=== PATIENT | female | born 1955 | race Caucasian/White ===

== ENCOUNTER 2019-01-19 13:12 | Day surgery (SDC) | payer BC ==
[~2019-01-19 13:12] MED LIST: Buffered Lidocaine 1% SYRIN* 1 ML/SYRINGE INTRADERM ONE; Famotidine IV* 10 MG/ML 2 ML (20 mg) IV ONE; Lactated Ringers 1000 ML Bag* 1,000 ML IV SCH
[2019-01-19] MEDS ORDERED: Famotidine IV* 10 MG/ML 2 ML (20 mg) ONE (13:27)
[2019-01-19] MEDS ORDERED: ceFAZolin 2 GM in NS PREMIX(*) 2 GM/100 ML BAG IVPB ONE (13:53)
[2019-01-19 14:30] LABS: ABS Eosinophils 0.1 10^3/ul (0-0.6); ABS Lymphocytes 0.7 10^3/ul (1.0-4.8); ABS Monocytes 0.2 10^3/ul (0-0.8); ABS Neutrophils 2.2 10^3/ul (1.5-7.7); Hematocrit 36 % (35-47); Hemoglobin 12.5 g/dL (12.0-16.0); Lymphocyte % 23.2 %; Mean Corpuscular HGB Conc 35 g/dL (31-36); Mean Corpuscular Hemoglobin 33 pg (27-31); Mean Corpuscular Volume 93 fL (80-97); Mean Platelet Volume 7.5 fL (7.4-10.4); Nucleated Red Blood Cells % 0.1; Platelet Count 235 10^3/uL (150-450); Red Blood Count 3.85 10^6 /uL (3.70-4.87); Red Cell Distribution Width 12 % (10-15); White Blood Count 3.2 10^3/uL (3.5-10.8)
[2019-01-19 14:40] LABS: Albumin 4.4 g/dL (3.2-5.2); Albumin/Globulin Ratio 1.3 (1-3); BUN/Creatinine Ratio 13.4 (8-20); Calcium 9.6 mg/dL (8.6-10.3); EGFR African American 107.9 (>60); EGFR Non-African American 89.2 (>60); Globulin 3.3 g/dL (2-4); Potassium 3.7 mmol/L (3.5-5.0); Total Bilirubin 0.6 mg/dL (0.2-1.0); Total Protein 7.7 g/dL (6.4-8.9)
[2019-01-19] MEDS ORDERED: Lidocaine 1% INJ* 10 MG/ML 30 ML SDV ONE (14:50)
[2019-01-19] MEDS ORDERED: fentaNYL* 50 MCG/ML 2 ML VIAL (100 MCG VIAL) ONE (15:29)
[2019-01-19] MEDS ORDERED: Midazolam* 1 MG/ML 5 ML VIAL (5 MG) ONE (15:30)
--- NOTE | 2019-01-19 17:35 | OP ---
Operative Report - Blank - Operative Report Date of Operation: 01/19/19 Note: OPERATIVE NOTE Pre-Operative Diagnosis: Lymphoma Post-Operative Diagnosis:Same Procedure:Insertion of left chest wall 8F powerport Surgeon: Julianna Alfaro MD [employer] Aide:none Anesthesia: Local with MAC with Dr. Montano IVF:min EBL:min Specimen:none Drain: none Wound Class:One Findings: Above TO PACU
[2019-01-19] MEDS ORDERED: Propofol* 10 MG/ML 20 ML BTL ONE (17:40)
[2019-01-19] MEDS ORDERED: Ondansetron INJ* 2 MG/ML VIAL ONE (17:40)
[2019-01-19] MEDS ORDERED: Acetaminophen TAB* 325 MG PO PRN (18:10)
[2019-01-19] MEDS ORDERED: Naloxone* 0.4 MG/ML 1 ML VIAL IV PRN (18:10)
[2019-01-19 18:35] VITALS: BP 155/89
--- NOTE | 2019-01-19 22:53 | OP ---
CC: Dr. Aubrey Howell * DATE OF OPERATION: 01/19/19 - [facility] DATE OF : 57 SURGEON: Daniel Alfaro MD FILM AND VIDEO EDITOR: None. ANESTHESIOLOGIST: Dr. Montano. ANESTHESIA: Local with monitored anesthesia care. PRE-OP DIAGNOSIS: Lymphoma. POST-OP DIAGNOSIS: Lymphoma. OPERATIVE PROCEDURE: Insertion of left chest wall, 8-Dutch PowerPort. ESTIMATED BLOOD LOSS: Minimal. IV FLUIDS: Minimal. SPECIMENS: None. COMPLICATIONS: None. DRAINS: None. WOUND CLASSIFICATION: I. BRIEF HISTORY: Ms. Rachel Rios is a 63-year-old woman recently diagnosed with lymphoma and now to receive chemotherapy. The PowerPort insertion has been requested by Oncology for chemotherapy administration. The procedure was discussed with the patient and the risks of, but not limited to, bleeding, infection, pneumothorax, injury to intrathoracic organs, and anesthesia were all explained. DESCRIPTION OF PROCEDURE: Written informed consent was obtained, the left chest was marked with indelible ink and preoperative antibiotics were administered. The patient was taken to the operating room and placed in the supine position. Sequential compression devices and a warming blanket were applied. Anesthesia was administered. Time-out verification was completed. The left chest and neck extending to the right side of the chest was prepped and draped in the usual sterile fashion. The patient was placed in Trendelenburg position. 1% lidocaine was used to infiltrate the left anterior chest wall. Using an 18-gauge Cook needle in the first pass, the subclavian vein was punctured below just beneath the clavicle. There was good blood return and the guidewire was inserted without difficulty and confirmed to be in the superior vena cava by fluoroscopy. Additional lidocaine was infiltrated inferior and medial to my puncture site. Transverse incision was made and the subcutaneous pocket was made large enough to fit the port just inferior to my incision. The catheter was then tunneled from the puncture site to the pocket site. Next, using the sheath, peel-away dilator system, the catheter was the inserted into the superior vena cava and positioned at the junction with the atrium using fluoroscopy. The catheter was then cut to appropriate length, attached to the port and placed in the subcutaneous pocket. The catheter withdrew and flushed saline well, withdrew blood and flushed easily. Heparin was then used to flush the catheter. The port was secured to the subcutaneous tissue within the pocket with 2 separate 2- 0 Prolene suture. Hemostasis was assured. The incisions were closed with 3-0 and 4-0 Vicryl sutures. Steri-Strips and a sterile dressing and an occlusive dressing were placed. The patient tolerated the procedure well and was taken to the recovery room in stable condition. Postprocedural chest x-ray showed the catheter to be in good position without evidence of pneumothorax. [id number]/[facility] #: [id number] ALEXANDER
== END 2019-01-19 18:39 | disposition home or self-care (01) ==
LOC: OR 13:12
PROVIDERS: ATTEND Surgery
DX: C85.91 Non-Hodgkin lymphoma, unspecified, lymph nodes of head, face, and neck (principal); E03.9 Hypothyroidism, unspecified; F41.8 Other specified anxiety disorders; E66.01 Morbid (severe) obesity due to excess calories; M19.90 Unspecified osteoarthritis, unspecified site
CPT/HCPCS: 36415; 71045; 76000; 80053; 85025; C1788; J0690; J1642; J2250; J2405; J2704; J3010

== ENCOUNTER 2019-05-07 15:29 | Inpatient (IN) | payer BC ==
[2019-05-07 15:36] LABS: ABS Lymphocytes 0.2 10^3/ul (1.0-4.8); ABS Monocytes 0.3 10^3/ul (0-0.8); ABS Neutrophils 2.2 10^3/ul (1.5-7.7); Eosinophil % 0.1 %; Hematocrit 21 % (35-47); Hemoglobin 7.4 g/dL (12.0-16.0); Mean Corpuscular HGB Conc 35 g/dL (31-36); Mean Corpuscular Hemoglobin 33 pg (27-31); Mean Corpuscular Volume 94 fL (80-97); Mean Platelet Volume 7.3 fL (7.4-10.4); Nucleated Red Blood Cells % 0.1; Platelet Count 227 10^3/uL (150-450); Red Blood Count 2.28 10^6 /uL (3.70-4.87); Red Cell Distribution Width 17 % (10-15); White Blood Count 2.8 10^3/uL (3.5-10.8)
[2019-05-07 15:52] LABS: Albumin 3.4 g/dL (3.2-5.2); Albumin/Globulin Ratio 1.2 (1-3); BUN/Creatinine Ratio 14.5 (8-20); Calcium 9.2 mg/dL (8.6-10.3); EGFR Non-African American 97.5 (>60); Globulin 2.9 g/dL (2-4); Total Bilirubin 0.9 mg/dL (0.2-1.0); Total Protein 6.3 g/dL (6.4-8.9)
[2019-05-07 16:00] LABS: Potassium 2.6 mmol/L (3.5-5.0)
[2019-05-07] MEDS ORDERED: Loperamide CAP* 2 MG PO PRN (17:20)
[2019-05-07] MEDS: KCL 20 MEQ/100 ML IVPREMIX* 20 MEQ/100 ML BAG IV SCH ×2 (19:19→21:26)
[2019-05-07] MEDS: Enoxaparin(*) 40 MG/0.4 ML SYR SUBCUT SCH (21:38)
[2019-05-07] MEDS: acetaZOLAMIDE TAB* 250 MG PO SCH (21:38)
[2019-05-07] MEDS: Timolol 0.5% OPTH.SOL* BTL BOTH EYES SCH (21:39)
[2019-05-08] MEDS: NS 0.9% w/ 40 Meq KCL 1000 ML* 1,000 ML IV SCH ×3 (01:01→22:56)
[2019-05-08] MEDS: Levothyroxine TAB* 100 MCG TAB PO SCH (05:07)
[2019-05-08 05:31] LABS: Hematocrit 18 % (35-47); Hemoglobin 6.2 g/dL (12.0-16.0); Mean Corpuscular HGB Conc 34 g/dL (31-36); Mean Corpuscular Hemoglobin 32 pg (27-31); Mean Corpuscular Volume 94 fL (80-97); Mean Platelet Volume 7.4 fL (7.4-10.4); Platelet Count 167 10^3/uL (150-450); Red Blood Count 1.91 10^6 /uL (3.70-4.87); Red Cell Distribution Width 17 % (10-15); White Blood Count 1.4 10^3/uL (3.5-10.8)
[2019-05-08 05:34] LABS: Albumin 2.7 g/dL (3.2-5.2); Calcium 8.4 mg/dL (8.6-10.3); EGFR African American 151.3 (>60); Globulin 2.6 g/dL (2-4); Potassium 3.2 mmol/L (3.5-5.0); Total Bilirubin 0.6 mg/dL (0.2-1.0); Total Protein 5.3 g/dL (6.4-8.9)
[2019-05-08 07:03] LABS: ABS Lymphocytes 0.2 10^3/ul (1.0-4.8); ABS Monocytes 0.2 10^3/ul (0-0.8); Lymphocyte % 14.6 %
[2019-05-08] MEDS: acetaZOLAMIDE TAB* 250 MG PO SCH ×3 (08:40→21:21)
[2019-05-08] MEDS: Timolol 0.5% OPTH.SOL* BTL BOTH EYES SCH ×2 (08:40→21:22)
[2019-05-08] MEDS ORDERED: Ondansetron TAB* 4 MG PO PRN (09:16)
[2019-05-08] MEDS ORDERED: Acetaminophen TAB* 325 MG PO PRN (09:16)
[2019-05-08] MEDS ORDERED: KCL 20 MEQ/100 ML IVPREMIX* 20 MEQ/100 ML BAG IV ONE (09:18)
--- NOTE | 2019-05-08 09:27 | PN ---
Progress Note - Progress Note Date of Service: 05/08/19 SOAP: Subjective: []Feels okay. Fever last night during transfusion, reaction work-up pending. Apparently she has been "spiking fevers" with tmax "100 point something" for several weeks, "and then I have a bowel movement and it goes down." She denies chills and night sweats. Poor appetite as it "just sits there" and feels like she doesn't have good gut bacteria right now, "Its all the chemicals and in there." She denies cramping but states she has a fair amount of gas. Denies nausea. Medications: Acetaminophen (Tylenol Tab*) 650 mg PO Q4H PRN PRN Reason: PAIN - MILD Acetazolamide (Diamox Tab*) 250 mg PO TID [facility] Last Admin: 05/08/19 08:40 Dose: 250 mg Enoxaparin Sodium (Lovenox(*)) 40 mg SUBCUT Q24H [facility] Last Admin: 05/07/19 21:38 Dose: 40 mg Heparin Sodium (Porcine) (Heparin Flush Port (Ivad)) 5 ml FLUSH DAILY [facility]; Protocol Last Admin: 05/08/19 08:54 Dose: Not Given Potassium Chloride/Sodium Chloride (Ns 0.9% W/ 40 Meq Kcl 1000 Ml*) 1,000 mls @ 150 mls/hr IV PER RATE [facility] Last Admin: 05/08/19 08:41 Dose: 150 mls/hr Potassium Chloride (Potassium Chloride 20 Meq/100 Ml Ivpremix*) 20 meq in 100 mls @ 50 mls/hr IV ONCE ONE Stop: 05/08/19 11:17 Levothyroxine Sodium (Synthroid Tab*) 100 mcg PO QAM@0600 [facility] Last Admin: 05/08/19 05:07 Dose: 100 mcg Loperamide HCl (Imodium Cap*) 2 mg PO .SEE DIRECTIONS PRN PRN Reason: DIARRHEA Ondansetron HCl (Zofran Tab*) 4 mg PO Q6H PRN PRN Reason: NAUSEA Prochlorperazine (Compazine 10 Mg Tab) 10 mg PO Q6H PRN PRN Reason: NAUSEA Timolol Maleate (Timoptic 0.5% Opth*) 1 drop BOTH EYES BID [facility] Last Admin: 03/31/20 08:40 Dose: 1 drop Objective: [] Vital Signs Temp Pulse Resp BP Pulse Ox 97.9 F 90 20 102/62 94 05/08/19 07:15 05/08/19 07:15 05/08/19 07:15 05/08/19 07:15 05/08/19 07:15 A&Ox3, EOMI, neuro grossly non-focal HRR with ectopy noted, SR with PACs and rare PVCs, rate 90s, occ. tachy LS clear +BS, abd. soft and non-tender throughout Laboratory Results - last 24 hr 05/07/19 05/07/19 05/07/19 15:25 15:25 15:25 WBC 2.8 L RBC 2.28 L Hgb 7.4 L Hct 21 L MCV 94 MCH 33 H MCHC 35 RDW 17 H Plt Count 227 MPV 7.3 L Neut % (Auto) 81.1 Lymph % (Auto) 7.0 [place] % (Auto) 11.0 Eos % (Auto) 0.1 Baso % (Auto) 0.8 Absolute Neuts (auto) 2.2 Absolute Lymphs (auto) 0.2 L Absolute Monos (auto) 0.3 Absolute Eos (auto) 0.0 Absolute Basos (auto) 0.0 Absolute Nucleated RBC 0.0 Nucleated RBC % 0.1 Sodium 136 Potassium 2.6 L* Chloride 103 Carbon Dioxide 23 Anion Gap 10 BUN 9 Creatinine 0.62 Est GFR ( Amer) 118.0 Est GFR (Non-Af Amer) 97.5 BUN/Creatinine Ratio 14.5 Glucose 129 H Calcium 9.2 Total Bilirubin 0.90 AST 21 ALT 21 Alkaline Phosphatase 59 Total Protein 6.3 L Albumin 3.4 Globulin 2.9 Albumin/Globulin Ratio 1.2 Blood Type A Positive Antibody Screen Negative Crossmatch See Detail Donor Unit # Post-Trans Blood Type Post-Trans YESSI 05/08/19 05/08/19 05/08/19 00:45 05:06 05:06 WBC 1.4 L RBC 1.91 L Hgb 6.2 L* Hct 18 L MCV 94 MCH 32 H MCHC 34 RDW 17 H Plt Count 167 MPV 7.4 Neut % (Auto) 68.7 Lymph % (Auto) 14.6 [place] % (Auto) 15.8 Eos % (Auto) 0.0 Baso % (Auto) 0.9 Absolute Neuts (auto) 1.0 L Absolute Lymphs (auto) 0.2 L Absolute Monos (auto) 0.2 Absolute Eos (auto) 0.0 Absolute Basos (auto) 0.0 Absolute Nucleated RBC 0.0 Nucleated RBC % 0.0 Sodium 139 Potassium 3.2 L Chloride 110 Carbon Dioxide 23 Anion Gap 6 BUN 6 Creatinine 0.50 L Est GFR ( Amer) 151.3 Est GFR (Non-Af Amer) 125.0 BUN/Creatinine Ratio 12.0 Glucose 97 Calcium 8.4 L Total Bilirubin 0.60 AST 18 ALT 16 Alkaline Phosphatase 51 Total Protein 5.3 L Albumin 2.7 L Globulin 2.6 Albumin/Globulin Ratio 1.0 Blood Type Antibody Screen Crossmatch Donor Unit # [id number] Post-Trans Blood Type A Positive Post-Trans YESSI Negative Assessment: []63 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 presenting with diarrhea and found to have profound hypokalemia. Plan: []1. Hypokalemia: secondary to diarrhea - 20 mEq KCl IV run x1, cont. NS with KCl - will be d/c'd on PO - enc. imodium PRN 2. Anemia: secondary to chemotherapy - s/p partial transfusion last night with question of reaction, work-up pending - transfuse 2 units today d/t hmg <7 3. Neutropenia: secondary to chemotherapy - precautions in place - call for any temp. >100.4F and will need cultures and lactic acid 4. Lymphoma: due for C6 R-CHOP today -delay x1 week d/t above Dispo: monitor overnight follow transfusion, plan d/c tomorrow
[2019-05-08 09:45] LABS: Magnesium 1.9 mg/dL (1.9-2.7)
[2019-05-08] MEDS: Enoxaparin(*) 40 MG/0.4 ML SYR SUBCUT SCH (21:22)
[2019-05-09] MEDS: NS 0.9% w/ 40 Meq KCL 1000 ML* 1,000 ML IV SCH (05:41)
[2019-05-09] MEDS: Levothyroxine TAB* 100 MCG TAB PO SCH (05:42)
[2019-05-09 09:22] LABS: ABS Lymphocytes 0.3 10^3/ul (1.0-4.8); ABS Monocytes 0.3 10^3/ul (0-0.8); Eosinophil % 0.1 %; Hematocrit 26 % (35-47); Hemoglobin 8.8 g/dL (12.0-16.0); Lymphocyte % 10.8 %; Mean Corpuscular HGB Conc 34 g/dL (31-36); Mean Corpuscular Hemoglobin 31 pg (27-31); Mean Corpuscular Volume 93 fL (80-97); Mean Platelet Volume 7.5 fL (7.4-10.4); Platelet Count 174 10^3/uL (150-450); Red Blood Count 2.81 10^6 /uL (3.70-4.87); Red Cell Distribution Width 18 % (10-15); White Blood Count 2.5 10^3/uL (3.5-10.8)
[2019-05-09] MEDS: Timolol 0.5% OPTH.SOL* BTL BOTH EYES SCH (09:26)
[2019-05-09] MEDS: acetaZOLAMIDE TAB* 250 MG PO SCH ×2 (09:26→13:59)
[2019-05-09 09:45] LABS: Albumin 2.9 g/dL (3.2-5.2); Albumin/Globulin Ratio 1.1 (1-3); Calcium 8.3 mg/dL (8.6-10.3); EGFR African American 151.3 (>60); Globulin 2.6 g/dL (2-4); Magnesium 1.6 mg/dL (1.9-2.7); Potassium 3.8 mmol/L (3.5-5.0); Total Bilirubin 0.8 mg/dL (0.2-1.0); Total Protein 5.5 g/dL (6.4-8.9)
[2019-05-09] MEDS ORDERED: Magnesium Sulfate 2 GM IV* 2 GM/50 ML BAG IVPB ONE (10:43)
--- NOTE | 2019-05-09 11:15 | DS ---
- Discharge Summary Admission Date: 05/07/2019 Discharge Date: 05/09/2019 Diagnoses: 1. Hypokalemia -plan continue po potassium 20meq twice daily -2gm IV mag given prior to discharge today 2. Diarrhea - encouraged use of loperamide 2mg PRN at home - bland diet, increase diet as tolerated. 3. Anemia - likely secondary to chemotherapy - partial transfusion received on 05/07/19, hgb stable at 8.8 today 4. 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 - held C6 for acute illness. Medications: Dorzolamide HCl/Pf [Dorzolamide 2% Eye Drop] 1 drop BOTH EYES BID 01/18/19 [ History Confirmed 05/07/19] Latanoprost/Pf [Latanoprost 0.005% Eye Drop] 1 drop BOTH EYES BEDTIME 01/18/19 [ History Confirmed 05/07/19] Levothyroxine Sodium 100 mcg PO QAM 01/18/19 [History Confirmed 05/07/19] Timolol 0.5% OPTH.JOSEPH* [Timoptic 0.5% Opth*] 1 drop BOTH EYES BID 01/18/19 [ History Confirmed 05/07/19] acetaZOLAMIDE [Acetazolamide] 250 mg PO TID 01/18/19 [History Confirmed 05/07/19 ] Acetaminophen TAB* [Tylenol TAB*] 650 mg PO Q4H PRN 05/07/19 [History Confirmed 05/07/19] Loperamide HCl [Imodium A-D] 2 mg PO Q4HR PRN 05/07/19 [History Confirmed ] Ondansetron TAB* [Zofran 4 MG Tab*] 4 mg PO Q6H PRN 05/07/19 [History Confirmed 05/07/19] Prochlorperazine 10 mg TAB [Compazine 10 mg TAB] 10 mg PO Q6H PRN 05/07/19 [ History Confirmed 05/07/19] Scopolamine 1.5 mg* PATCH* [Transderm-Scop 1.5 mg Patch*] 1 patch TRANSDERM Q72H PRN 05/07/19 [History Confirmed 05/07/19] predniSONE 5 mg TAB [Deltasone 5 mg TAB] 100 mg PO DAILY 05/07/19 [History Confirmed 05/09/19] Loperamide CAP* [Imodium CAP*] 2 mg PO .SEE DIRECTIONS PRN cap 05/09/19 [Rx] Disposition: Home Condition at Discharge: Stable Diet: bland, increase as tolerated Activity: as tolerated Follow-up: TuesdayMay 14 at 0840 at [facility] for lab work/chemotherapy to follow. Hospital Course: This is a 63-year-old female well known to oncology with history of DLBCL s/p C5 R-CHOP, MTX IT. She was seen in clinic on 05/07/19 for routine follow-up at which point she complained of diarrhea and was found to be hypokalemic. She was subsequently admitted for IV hydration and electrolyte repletion. She was also found to be anemic, likely secondary to chemotherapy so transfusion of 2U PRBC was ordered. Unfortunately during the transfusion she was febrile to 100.6F so transfusion was stopped and subsequent reaction work-up was negative. She was given another transfusion of 2U PRBC (total of 3U during hospital admission) on 05/08/19 without incident. Her hgb stabilized and at time of discharge is 8.8. She has not had any further fevers and vital signs have remained stable. Today she reports she is feeling "about the same as I was when I came in here" but reports she is anxious to get home. She reports she has had one episode of diarrhea this morning and one episode yesterday morning. She has not used antidiarrheals during this hospital stay. Her potassium this morning has normalized to 3.8, Mg is 1.6 and patient will receive 2gm IV today prior to discharge home. She will also be discharged home with oral potassium 20meq to be taken twice daily. She did not receive chemotherapy R-CHOP C6 this week due to acute illness, will reassess at discharge as an outpatient.
[2019-05-09 12:55] VITALS: BP 101/47
== END 2019-05-09 16:40 | disposition home or self-care (01) | DRG 422 ==
LOC: CHOA 15:29 → MEDTELE 17:20 → OBSVTOIN 05-08 10:00 → MEDTELE 05-09 11:11
PROVIDERS: ADMIT Internal Medicine Hematology & Oncology; ATTEND Internal Medicine Hematology & Oncology
PROC: 30233N1 Transfusion of Nonautologous Red Blood Cells into Peripheral Vein, Percutaneous Approach (ICD-10-PCS; principal; 2019-05-07)
DX: E87.6 Hypokalemia (principal); C83.31 Diffuse large B-cell lymphoma, lymph nodes of head, face, and neck; R19.7 Diarrhea, unspecified; D64.81 Anemia due to antineoplastic chemotherapy; H40.9 Unspecified glaucoma; F41.9 Anxiety disorder, unspecified; F32.9 Major depressive disorder, single episode, unspecified; E78.5 Hyperlipidemia, unspecified; E03.9 Hypothyroidism, unspecified; E66.9 Obesity, unspecified; B36.8 Other specified superficial mycoses; E86.0 Dehydration; D70.1 Agranulocytosis secondary to cancer chemotherapy; Z91.040 Latex allergy status; Z79.52 Long term (current) use of systemic steroids; Z79.899 Other long term (current) drug therapy; Z68.34 Body mass index [BMI] 34.0-34.9, adult; Z82.49 Family history of ischemic heart disease and other diseases of the circulatory system; Z83.79 Family history of other diseases of the digestive system
CPT/HCPCS: 36415; 36591; 80053; 83735; 85025; 85060; 86078; 86850; 86900; 86901; 86922; 93005; 99220; 99233; 99239; A9270-GY; G0378; J1642; J1650; J3475; J3480; P9040